=== PATIENT | male | born 1950 | race Caucasian/White ===

== ENCOUNTER 2019-04-21 12:32 | Emergency (ER) | payer OTHER ==
[2019-04-21] MEDS ORDERED: DIPH/PERTUSS(ACELL)/TETANUS VAC/PF 0.5 ML SYR (>=10YO) IM ONE (13:44)
--- NOTE | 2019-04-21 13:50 | ER Document Report ---
HPI - HPI Patient complains to provider of: finger laceration, need tetanus Time Seen by Provider: 04/21/19 13:41 Onset: Yesterday Severity: Mild Pain Level: 1 Context: This 69-year-old male presents emergency department with laceration to his left index finger that occurred yesterday when he was working on his deck. Reports he cut himself with his table saw. He cleaned the area with peroxide and alcohol. Reports he is here because he believes he needs a tetanus. Patient has full range of motion to the finger no signs or symptoms of infection no erythema swelling no warmth. Associated Symptoms: None Exacerbated by: Denies Relieved by: Denies Similar symptoms previously: No Recently seen / treated by doctor: No Past Medical History - General Information source: Patient - Social History Smoking Status: Unknown if Ever Smoked Cigarette use (# per day): No Frequency of alcohol use: None Drug Abuse: None Family History: None Patient has suicidal ideation: No Patient has homicidal ideation: No - Past Medical History Cardiac Medical History: Reports: Hx Hypertension Surgical Hx: Negative Vertical Provider Document - CONSTITUTIONAL Agree With Documented VS: Yes Exam Limitations: No Limitations General Appearance: WD/WN, No Apparent Distress - INFECTION CONTROL TRAVEL OUTSIDE OF THE [place] IN LAST 30 DAYS: No - HEENT HEENT: Atraumatic, Normocephalic - NECK Neck: Supple - RESPIRATORY Respiratory: No Respiratory Distress - CARDIOVASCULAR Cardiovascular: Regular Rate - MUSCULOSKELETAL/EXTREMETIES Musculoskeletal/Extremeties: MAEW, FROM, Non-Tender - NEURO Level of Consciousness: Awake, Alert, Appropriate Motor/Sensory: No Motor Deficit - DERM Integumentary: Warm, Dry, Laceration - 1 cm superficial almost fully approximated laceration noted to his left ring finger laterally. No erythema no warmth no discharge patient has full range of motion no nailbed injury no numbness tingling. Extends and flexes his finger without problems. Course - Re-evaluation Re-evalutation: 04/21/19 13:49 This 69-year-old male presents emergency department post laceration to his left ring finger. Patient is here for a tetanus. The lacerations very superficial approximately 1 cm almost approximated. Patient denies numbness tingling. Patient flexes and extends his finger without problems. He was instructed on signs and symptoms of infection. He was also instructed to follow-up with his primary care provider next week for recheck. He verbalized understanding to all instructions. Dictation of this chart was performed using voice recognition software; therefore, there may be some unintended grammatical errors. - Vital Signs Vital signs: Temp Pulse Resp BP Pulse Ox 97.8 F 66 18 145/72 H 94 04/21/19 12:36 04/21/19 12:36 04/21/19 12:36 04/21/19 12:36 04/21/19 12:36 Discharge - Discharge Clinical Impression: Tetanus Finger laceration Qualifiers: Encounter type: initial encounter Finger: ring finger Damage to nail status: without damage Foreign body presence: without foreign body Laterality: left Qualified Code(s): S61.215A - Laceration without foreign body of left ring finger without damage to nail, initial encounter Condition: Stable Disposition: HOME, SELF-CARE Instructions: Non-Sutured Laceration ([facility]), Soap Cleansing ([facility]), Tetanus Immunization Given ([facility]) Additional Instructions: *You have been treated for finger laceration *Monitor the site for signs of infection such as pain, redness, swelling, warmth *Keep the area clean *Follow up with Dr. Gresham within 1 week for recheck. *Return to ED for signs of infection, worsening condition, changes, needs Referrals: KAVITHA MARISCAL MD [Primary Care Provider] - Follow up as needed
[2019-04-21 14:00] VITALS: BP 127/75
== END 2019-04-21 14:10 | disposition home or self-care (01) ==
LOC: ER 12:32
DX: S61.215A Laceration without foreign body of left ring finger without damage to nail, initial encounter (principal); W29.8XXA Contact with other powered hand tools and household machinery, initial encounter; Z23 Encounter for immunization
CPT/HCPCS: 90471; 90715; 99282